=== PATIENT | male | born 1955 | race Caucasian/White ===

== ENCOUNTER 2017-06-06 15:01 | Emergency (ER) | payer OTHER ==
[~2017-06-06] VITALS: Ht 175.3 cm; Wt 71.7 kg
[2017-06-06] MEDS ORDERED: ASPIR-TRIN325 MG PO (15:28)
--- OUTSIDE RECORDS SUMMARY | 2017-06-06 15:52 | External Medical Summary Rpt | CCD ---
Demographics Home Phone Preferred Language Thai Marital Status Unknown Mu-Ism Affiliation Unknown Race Unknown Ethnic Group Unknown Author Author , MEL LEAL Address Unknown Phone [email or web address] Purpose Continuity of Care Document - through 2016 Problems Code Diagnosis DOS Provider Status M25.562 Pain in left knee
--- OUTSIDE RECORDS SUMMARY | 2017-06-06 15:52 | External Medical Summary Rpt | CCD ---
Author Author , MEL LEAL Address Unknown Phone [email or web address] Name Relationship Address Phone JOSE, Next Of Kin Unknown Unavailable RODRÍGUEZ Immunization Name Date Rout CVX Reac Dose Comm Prov Is Faci e tion ent ider Refu lity Give sed n Zost 05-0 Subc 121 0.5 Hist FAMP No FAMP er 8-20 utan mL oric RASO RASO 17 eous al FLMN FLMN Info rmat ion - Sour ce Unsp ecif ied Infl 10-1 Intr 140 0.5 Hist WALM No WALM uenz 9-20 amus mL oric ART3 ART3 a, 16 cula al 894 894 P-Fr r Info ee rmat ion - Sour ce Unsp ecif ied PPV2 10-1 Intr 33 0.5 Hist WALM No WALM 3 9-20 amus mL oric ART3 ART3 16 cula al 894 894 r Info rmat ion - Sour ce Unsp ecif ied
--- OUTSIDE RECORDS SUMMARY | 2017-06-06 15:52 | External Medical Summary Rpt | CCD ---
Author Author [employer] Organization [employer] Address Unknown Phone Unavailable Purpose Continuity of Care Document - through 2016
--- OUTSIDE RECORDS SUMMARY | 2017-06-06 15:52 | External Medical Summary Rpt ---
Author Author MEL Singer, MEL Singer Organization [employer] Address Unknown Phone Unavailable Payers Section Payer Plan Name Group ID Member ID Coverage Coverage Start End Date Date [employer] "" [id number] Jul [id number] informati on in source data
--- OUTSIDE RECORDS SUMMARY | 2017-06-06 15:52 | External Medical Summary Rpt | CCD ---
Author Author , MEL LEAL Address Unknown Phone [email or web address] Support Name Relationship Address Phone JOSE, Next [...]
--- OUTSIDE RECORDS SUMMARY | 2017-06-06 15:52 | External Medical Summary Rpt | CCD ---
Demographics Home Phone Preferred Language Macedonian Marital Status Unknown Advent Affiliation Unknown Race Unknown Ethnic Group Unknown Author Author , MEL LEAL Address Unknown Phone [email or web address] Purpose Continuity of Care Document - through 2016 Problems Code Diagnosis DOS Provider Status M25.562 Pain in left knee
--- OUTSIDE RECORDS SUMMARY | 2017-06-06 15:52 | External Medical Summary Rpt ---
Author Author MEL Singer, MEL Singer Organization [employer] Address Unknown Phone Unavailable Payers Section Payer Plan Name Group ID Member ID Coverage Coverage Start End Date Date [employer] "" [id number] Jul [id number] informati on in source data
--- NOTE | 2017-06-06 15:55 | Emergency Room Report ---
History of Present Illness Time Seen by 1550 Presenting Problem in Triage Pt arrived:Walked Presenting Problem:FELL AND CUT ELBOW. PT REPORTS TAKING A DAILY ASA AND DOENS'T WANT HIS OPWN WOUND TO GET INFECTED Onset of symptoms date/time:06/06/17 or onset unknown for: Treatment Prior to Arrival: [employer] Provided by: Sepsis Risk Assessment: Temp: 98.5 B/P: 133/72 MAP: 92 Pulse: 96 Resp: 18 Recent fever? N Clinical Suspician of Infection? N Mental Status: 1 - Regular (Normal Baseline) Sepsis Risk:Low Sepsis Risk Have you (or family members/close friends) recently traveled outside the [place]? N If Yes, where/when: Have you had exposure to infectious disease within the past month? TB? Other? Specify: Comment The patient says he accidentally fell into a ditch, striking his LEFT elbow on a rock. He is afraid of infection. He is diabetic and on aspirin. He is artery on 3 antibiotics for a problem with his colon. His tetanus immunization status is up-to-date. ALLERGIES Uncoded Allergies: PCN (Mild, 06/06/17) Home Medications Reported Medications Aspirin (Aspir-Diana) 325 MG PO DAQILY History Medical History General Hypertension? Yes Hyperlipidemia? Yes More? No Immunization Hx Ped.Immunizations UTD Yes DT/Tetanus 1-4 Years Ago Surgical Hx Previous Surgery?N Social History Smoking Hx Smoker: Never Smoker Tobacco: No Type N/A Are you/the child exposed to second-hand smoke: No Review of Systems All Other Systems Reviewed and Negative Constitutional denies fever Skin see HPI Psychiatric/Neurological denies numbness, denies weakness Physical Exam Vital Signs Vital Signs Date Time Temp Pulse Resp B/P Pulse O2 O2 Flow FiO2 Ox Delivery Rate 06/06 1639 98.5 85 14 132/76 95 06/06 1621 85 14 132/76 95 06/06 1525 98.5 96 18 133/72 98 General Appearance no apparent distress Respiratory Status No: respiratory distress. Cardiovascular regular rate/rhythm, normal peripheral pulses Extremities 3 cm laceration LEFT elbow over the region of the proximal ulna. Abrasion extending distally from that. Normal neurovascular status. It extends into subcutaneous tissue. No foreign bodies or contamination or deep structure injury found. normal range of motion. No joint pain or effusion. Neurologic alert, no motor/sensory deficits Medical Decision Making LABS/Meds/Orders Pt receiving controlled substance in ED? No Procedures Laceration/Wound Repair Progress Laceration Repair Performed by: MONICA CANO Consent: Verbal consent obtained. Risks and benefits: risks, benefits and alternatives were discussed Consent given by: patient Patient identity confirmed: verbally with patient Laceration location: LEFT elbow Laceration length: 3 cm Local anesthetic: 1 percent lidocaine Wound prep: Sterilly scrubbed with Hibiclens and irrigated with copious normal saline. Draping: Sterile in usual manner Patient sedated: no Debridement: Minimal Exploration: No foreign body, contamination, or deep structure injury seen Layers Closed: Skin Suture material, skin: 5-0 Prolene Number of sutures: 5 Patient tolerance: Patient tolerated the procedure well with no immediate complications Departure Departure Disposition DC Home or Self Care(routine) Clinical Impression Primary Impression: Laceration of left elbow Qualifiers: Encounter type: initial encounter Qualified Code: S51.012A - Laceration without foreign body of left elbow, initial encounter Condition STABLE Referrals CECILIO ZAAVLA (Family) Patient Instructions DI for Laceration Repair Additional Instructions Additional instructions for LACERATION: Clean the wound daily with soap and water. You may shower. Apply a thin film of antibiotic ointment such as neosporin or triple antibiotic after showering and apply a bandage. Avoid submerging the wound, no swimming. See your primary care physician or return to the [facility]gent [facility] in 10 days for suture removal. The Urgent Treatment Center is open 9 AM to 9 PM 7 days a week. Return if any signs of infection including increasing pain, pus drainage, swelling, redness, red streaks, or fever. ED Critical Care Critical Care No at 1708
[2017-06-06] MEDS ORDERED: KEFLEX500 M1 PO (16:19)
[2017-06-06 16:39] VITALS: BP 132/76
== END 2017-06-06 16:40 | disposition home or self-care (01) ==
LOC: ER 15:01
PROC: 0HQEXZZ Repair Left Lower Arm Skin, External Approach (ICD-10-PCS; principal; 2017-06-06)
DX: S51.012A Laceration without foreign body of left elbow, initial encounter (principal); Z88.0 Allergy status to penicillin; E11.9 Type 2 diabetes mellitus without complications; Z79.82 Long term (current) use of aspirin